=== PATIENT | female | born 1985 | race Caucasian/White ===

== ENCOUNTER 2020-02-25 18:10 | Emergency (ER) | payer BC, SELFPAY ==
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
[2020-02-25 18:15] VITALS: BP 156/70; PULSE 102; RESP 20; TEMP 36.9; O2SAT 100
[2020-02-25] MEDS: SILVER SULFADIAZINE 1% CR 50 GM JAR (*BKC) 1 APPLIC TOPICAL ×2 (18:39→18:40)
== END 2020-02-25 18:55 | disposition home or self-care (01) ==
PROVIDERS: Emergency Provider Nurse Practitioner Family; PCP Physician Assistant
DX: L55.0 Sunburn of first degree (principal); K21.9 Gastro-esophageal reflux disease without esophagitis; Z87.891 Personal history of nicotine dependence; R03.0 Elevated blood-pressure reading, without diagnosis of hypertension
CPT/HCPCS: 16000; 99213; A9270; G0463

== ENCOUNTER → 2020-05-20 11:03 | Outpatient (CLI) | payer BC, SELFPAY ==
--- NOTE | ~2020-05-20 | XR_ITS ---
EXAMINATION: XR chest 2V EXAM DATE: 05/20/2020 11:31 INDICATION: Cough. TECHNIQUE: Frontal and lateral projections of the chest obtained and reviewed. There is no prior giovanna dy for comparison. FINDINGS: The lungs are clear. There are no pleural effusions. The cardiomediastinal silhouette is within normal limits. There is no pneumothorax suspected. The bones and soft tissues are unremarkab le. IMPRESSION: No acute cardiopulmonary findings. Reviewed, dictated and finalized at location A.
== END ==
PROVIDERS: PCP Physician Assistant; Visit Provider Physician Assistant
DX: R05 Cough (principal)
CPT/HCPCS: 71046

== ENCOUNTER 2020-06-25 11:33 | Outpatient (CLI) | payer BC, SELFPAY ==
--- NOTE | ~2020-06-25 | XR_ITS ---
EXAMINATION: XR hysterosalpingogram DATE: 06/25/2020 13:44 INDICATION: Infertility. TECHNIQUE: Fluoroscopy was performed by the radiologist during contrast infusion into the endometrial cavity of the uterus by the primary physician. Fluoroscopy exposure time was 0.3 minutes. The total number of images was 8. FINDINGS: The intrauterine cavity is normal in morphology. The fallopian tubes are normal in caliber. The images demonstrate free intraperitoneal spillage of contrast on both sides. IMPRESSION: 1. Normal hysterosalpingogram. Reviewed, dictated and finalized at location A.
[2020-06-25 12:24] LABS: Beta HCG Quantitative < 2.39 mIU/ML
--- NOTE | 2020-06-25 13:46 | PM.PROC ---
Procedure Note - Detailed Date of procedure: 06/25/20 Pre-op diagnosis: infertiliy Procedure performed: Hysterosalpingogram Description of procedure: patient was placed in the dorsal lithotomy position. Speculum was placed in the vagina. The cervix grasped with a tenaculum. A catheter was inserted and the balloon was inflated. As far. Pictures were taken and radiopaque dye was inserted forced into the intrauterine cavity and out the fallopian tubes. The catheter was withdrawn. The speculum was withdrawn. the tenaculum had been withdrawn. The patient tolerated procedure well. Anesthesia: none Surgeon: Moris Harding MD Estimated blood loss (mL): 0 Drains: No Packing: No Pathology: none sent Complications: No immediate complications Condition: stable Disposition: PACU Findings: Patent fallopian tubes and normal appearing endometrial cavity, normal vulva, vagina, and cervix.
== END 2020-06-25 11:34 | disposition home or self-care (01) ==
PROVIDERS: PCP Physician Assistant; Visit Provider Obstetrics & Gynecology
DX: N97.9 Female infertility, unspecified (principal)
CPT/HCPCS: 36415; 58340; 74740; 84702; Q9966